=== PATIENT | male | born 1990 | race Asian ===

== ENCOUNTER 2016-12-14 13:20 | Emergency (ER) | payer OTHER ==
[2016-12-14] MEDS ORDERED: OXYCODONE/APAP 5/325 TAB PO ONE (14:37)
--- NOTE | 2016-12-14 14:46 | EDPHY ---
H & P Time Seen by Provider: 12/14/16 14:16 HPI/ROS: CHIEF COMPLAINT: Right pinky finger injury HISTORY OF PRESENT ILLNESS: Patient is a 26-year-old male presents to the emergency department after injuring his right pinky finger while playing football. He GM the finger on a football. He now has deformity and pain of his right pinky finger. Pain is moderate. It does not radiate. No numbness or tingling. REVIEW OF SYSTEMS: Negative Past Medical/Surgical History: Denies Smoking Status: Never smoked Physical Exam: General Appearance: Alert and no distress. Head: Pupils equal. Normal. Respiratory: No respiratory distress. Cardiac: regular rate and rhythm. Extremities: Patient has a lateral deformity of the right pinky finger. There is no significant swelling. No skin break or laceration. Brisk capillary refill. Normal sensation. The no other hand deformity or tenderness palpation. Skin: No rashes or lesions. Neuro: Alert. Normal mood and affect. Constitutional: Initial Vital Signs Temperature (C) 36.7 C 12/14/16 13:28 Heart Rate 84 12/14/16 13:28 Respiratory Rate 16 12/14/16 13:28 O2 Sat (%) 97 12/14/16 13:28 O2 Delivery Mode Room Air Allergies/Adverse Reactions: No Known Drug Allergies Allergy (Verified 12/14/16 13:30) Home Medications: Medication Instructions Recorded Hydrocodone/APAP 5/325 [Elma 1 - 2 tab PO Q4 #9 tab 12/14/16 5/325 (RX)] Medical Decision Making - Diagnostics Imaging Results: Imaging Impressions Finger X-Ray 12/14/16 13:31 Impression: Displaced comminuted right fifth proximal phalangeal mid to distal diaphyseal shaft fracture. ED Course/Re-evaluation: In the emergency department I discussed possible etiologies with the patient. X -ray of his right hand was ordered. Right hand x-ray: Patient has a comminuted and angulated fracture with possible dislocation of his right proximal phalangeal fracture Patient was given Percocet 2 tablets orally. I discussed the x-ray findings with the patient. I discussed conscious sedation versus manual reduction with the Percocet. Patient would prefer only Percocet for his reduction. Procedure: Fracture reduction Indication: Right proximal phalanx fracture The patient consented to the procedure. Using manual reduction the bone was a line. An ulnar gutter splint was placed. Patient was neurovascularly intact post splint placement. Procedure: Ortho Glass splint placement Indication: Right proximal phalanx fracture The Ortho gas splint was placed by me. Neurovascular intact distally. The post reduction x-ray: Improved anatomical alignment. The patient was given follow-up with the hand specialist. I informed him that he needs to keep the splint in place until follow-up. He was given warnings prior to leaving. Differential Diagnosis: My differential includes but is not limited to fracture, dislocation, sprain, contusion, nerve injury - Data Points Medications Given: Discontinued Medications Oxycodone/Acetaminophen (Percocet 5/325) 2 tab PO EDNOW ONE Stop: 12/14/16 14:38 Last Admin: 12/14/16 14:39 Dose: 2 tab Departure - Departure Disposition: Home, Routine, Self-Care Clinical Impression: 5th finger fracture Finger fracture, right Qualifiers: Encounter type: initial encounter Finger: little finger Fracture type: closed Phalanx: proximal Fracture alignment: displaced Qualified Code(s): S62.616A - Displaced fracture of proximal phalanx of right little finger, initial encounter for closed fracture Condition: Good Instructions: Finger Fracture (ED) Additional Instructions: You need close follow-up with the hand surgeon. This may require surgical repair. Keep your splint in place until follow-up. Referrals: Jm Dover MD [Medical Doctor] - 5-7 days, call for appt. Prescriptions: Hydrocodone/APAP 5/325 [Elma 5/325 (RX)] 1 - 2 tab PO Q4 #9 tab
[2016-12-14 15:41] VITALS: BP 112/74; PULSE 71; RESP 18; TEMP 98.2; O2SAT 98
== END 2016-12-14 15:40 | disposition home or self-care (01) ==
PROC: 0PSTXZZ Reposition Right Finger Phalanx, External Approach (ICD-10-PCS; principal; 2016-12-14)
DX: S62.616A Displaced fracture of proximal phalanx of right little finger, initial encounter for closed fracture (principal); W21.01XA Struck by football, initial encounter; Y99.8 Other external cause status; Y93.62 Activity, american flag or touch football